=== PATIENT | female | born 1985 | race Caucasian/White ===

== ENCOUNTER 2017-02-18 19:24 | Emergency (ER) | payer MEDICAID ==
[~2017-02-18] VITALS: Ht 170.2 cm; Wt 58.0 kg
[2017-02-18 20:10] LABS: BLOOD UREA NITROGEN 13 mg/dL (7-18)
[2017-02-18 20:14] LABS: IS PT STATUS REG ER OR PRE ER? YES
[2017-02-18] MEDS ORDERED: SERT50TA PO (20:45)
[2017-02-18] MEDS ORDERED: DEXAMETHASONE 4 MG TABLET ONE (20:48)
[2017-02-18] MEDS ORDERED: DEXAMETHASONE 4 MG/ML, 1ML PO ONE (21:00)
[2017-02-18 21:24] VITALS: BP 112/78
== END 2017-02-18 21:27 | disposition home or self-care (01) ==
LOC: ED 21:15
DX: J02.8 Acute pharyngitis due to other specified organisms (principal); B97.89 Other viral agents as the cause of diseases classified elsewhere
CPT/HCPCS: 36415; 71020; 80048; 82040; 84484; 85025; 93005; 99285; J1100